=== PATIENT | female | born 1965 | race Caucasian/White ===

== ENCOUNTER 2016-12-07 19:24 | Emergency (ER) | payer SELFPAY ==
[2016-12-07] MEDS ORDERED: Ibuprofen 800 MG TAB ONE (19:48)
[2016-12-07] MEDS ORDERED: traMADol HCl 50 MG TAB ONE (19:48)
[2016-12-07] MEDS ORDERED: HYDROcodone/Acetaminophen 10/325 mg Tablet ONE (20:10)
--- NOTE | 2016-12-07 22:44 | RAD ---
LEFT WRIST THREE VIEWS: Date: 12-07-16 Comparison: 12-04-16 study done at [facility] in [place]. FINDINGS: There has been no particular change in the interval. Healing impacted fracture of the distal radius is present as well as an ulnar styloid process fracture. The carpals all appear intact. IMPRESSION: Healing fracture of the distal radius with no adverse change since 12-04-16. POS: HOME
== END 2016-12-07 20:10 | disposition home or self-care (01) ==
LOC: BURERS 19:24
DX: S52.532D Colles' fracture of left radius, subsequent encounter for closed fracture with routine healing (principal); M25.532 Pain in left wrist; F17.210 Nicotine dependence, cigarettes, uncomplicated; Z87.442 Personal history of urinary calculi
CPT/HCPCS: 99283

== ENCOUNTER 2016-12-21 11:19 | Emergency (ER) | payer SELFPAY | END 2016-12-21 11:25 | disposition left against medical advice (07) | LOC: BURERS 11:19 | DX: R50.9 Fever, unspecified (principal); G43.909 Migraine, unspecified, not intractable, without status migrainosus; F17.210 Nicotine dependence, cigarettes, uncomplicated ==

== ENCOUNTER 2017-11-24 19:58 | Emergency (ER) | payer SELFPAY ==
[2017-11-24] MEDS ORDERED: Morphine 4 MG/ML Carpuject ONE ×3 (20:08→20:53)
[2017-11-24 20:22] LABS: BHCG - Serum Negative (NEGATIVE); Pregs Control Background? CLEAR/WHITE (CLR/WHITE); Pregs Control Bar Appear? YES (CONTROL BAR)
[2017-11-24 20:23] LABS: INR-International Normal Ratio 0.9; Prothrombin Time 12.2 SEC (12.0-14.7)
[2017-11-24 20:41] LABS: Hemoglobin 14.4 g/dL (12.0-16.0); Mean Corpuscular HGB CONC 34.5 g/dL (32.0-36.0); Mean Corpuscular Hemoglobin 33.2 pg (27.0-31.0); Mean Corpuscular Volume 96.2 fl (81.0-99.0); Mean Platelet Volume 5.5 fL (7.4-10.4); Platelet Count 300 thou/uL (130-400); Red Blood Cell (RBC) Count 4.34 mill/uL (4.20-5.40); White Blood Cell (WBC) Count 4.7 thou/uL (4.8-10.8)
[2017-11-24 20:42] LABS: Band 3 % (5-11); Lymphocytes 46 % (21-51); MDiff Complete? YES; Monocytes 19 % (0-10); Neutrophil 30 % (42-75); Reactive Lymphocytes 1 % (0-10)
[2017-11-24 20:49] LABS: ALT (SGPT) 86 U/L (8-55); Albumin 4.1 g/dL (3.5-5.0); Alcohol 285 mg/dL (Less than 10); Alkaline Phosphatase 56 U/L (40-150); Anion Gap 25 mmol/L (10-20); BUN (Urea Nitrogen) 18 mg/dL (9.8-20.1); Bilirubin, Total Less than 0.2 mg/dL (0.2-1.2); Calc. Creatinine Clearance 0 mL/min (70-130); Calcium 8.8 mg/dL (7.8-10.44); Carbon Dioxide 21 mmol/L (22-29); Chloride 106 mmol/L (98-107); Estimated GFR-MDRD 88; Globulin 3.2 g/dL (2.4-3.5); Glucose 82 mg/dL (70-105); Potassium 4.5 mmol/L (3.5-5.1); Protein, Total 7.3 g/dL (6.0-8.3); Sodium 147 mmol/L (136-145)
[2017-11-24 20:51] LABS: AST (SGOT) 86 U/L (5-34)
--- NOTE | 2017-11-24 23:03 | RAD ---
RIGHT LEG TWO VIEWS 11/24/17 A spiral fracture of the tibial shaft is seen at the junction of its middle and distal thirds. There is posterior angulation of the proximal fragment. Additional, there is an oblique fracture of the dis elroy fibular shaft with posterior displacement of the distal fibula/lateral malleolus. This implies th e ankle mortise is disrupted. IMPRESSION: Fractures of the tibial shaft and distal fibula. POS: HOME
== END 2017-11-24 21:30 | disposition critical access hospital (66) ==
LOC: BURERS 19:58
DX: S82.231A Displaced oblique fracture of shaft of right tibia, initial encounter for closed fracture (principal); S82.431A Displaced oblique fracture of shaft of right fibula, initial encounter for closed fracture; G43.909 Migraine, unspecified, not intractable, without status migrainosus; M81.0 Age-related osteoporosis without current pathological fracture; F17.210 Nicotine dependence, cigarettes, uncomplicated; Z87.442 Personal history of urinary calculi; W22.8XXA Striking against or struck by other objects, initial encounter
CPT/HCPCS: 80053; 80307; 84703; 85025; 85610; 85730; 94760; 96374; 96376; J2270

== ENCOUNTER 2018-04-26 02:15 | Emergency (ER) | payer SELFPAY ==
[2018-04-26 03:12] LABS: Bilirubin Negative (Negative); Blood, Urine Moderate (Negative); Clarity Clear (Clear); Glucose, Urine (Dipstick) Negative (Negative); Leukocyte Negative (Negative); Nitrite Negative (Negative); Protein, Urine (Dipstick) Negative (Neg-Trace); Specific Gravity, Urine 1.005 (1.002-1.036); Urobilinogen 0.2 mg/dL (0.2-1.0)
[2018-04-26 03:21] LABS: ALT (SGPT) 96 U/L (8-55); AST (SGOT) 63 U/L (5-34); Acetaminophen Less than 6.0 mcg/mL (10.0-30.0); Albumin 4.2 g/dL (3.5-5.0); Alcohol 312 mg/dL (Less than 10); Alkaline Phosphatase 55 U/L (40-150); Anion Gap 18 mmol/L (10-20); BUN (Urea Nitrogen) 7 mg/dL (9.8-20.1); Bilirubin, Total Less than 0.2 mg/dL (0.2-1.2); Calc. Creatinine Clearance 0 mL/min (70-130); Calcium 9.3 mg/dL (7.8-10.44); Carbon Dioxide 25 mmol/L (22-29); Chloride 110 mmol/L (98-107); Estimated GFR-MDRD Greater than 90; Globulin 2.9 g/dL (2.4-3.5); Glucose 78 mg/dL (70-105); Potassium 3.7 mmol/L (3.5-5.1); Protein, Total 7.1 g/dL (6.0-8.3); Sodium 149 mmol/L (136-145)
[2018-04-26 03:24] LABS: Hemoglobin 13.4 g/dL (12.0-16.0); Mean Corpuscular HGB CONC 36.3 g/dL (32.0-36.0); Mean Corpuscular Hemoglobin 34.4 pg (27.0-31.0); Mean Corpuscular Volume 94.6 fL (78.0-98.0); Mean Platelet Volume 5.7 fL (7.4-10.4); PLT Morphology Comment Appears Adequate; Platelet Count 228 thou/uL (130-400); RBC Distribution Width 13.1 % (11.5-14.5); RBC Morphology Normal; Red Blood Cell (RBC) Count 3.89 mill/uL (4.20-5.40); White Blood Cell (WBC) Count 6.1 thou/uL (4.8-10.8)
[2018-04-26 03:27] LABS: Amphetamine Not Detected (NotDetected); Barbiturates Screen Not Detected (NotDetected); Benzodiazepine Screen Not Detected (NotDetected); Cocaine Metabolite Screen Not Detected (NotDetected); Medtox Control Line Valid? VALID (VALID); Methadone Not Detected (NotDetected); Methamphetamine Not Detected (NotDetected); Opiate Screen Not Detected (NotDetected); Oxycodone Screen Not Detected (NotDetected); Phencyclidine (PCP) Not Detected (NotDetected); THC/Cannabinoid Screen Not Detected (NotDetected); Tricyclic Screen Not Detected (NotDetected)
[2018-04-26 03:30] LABS: Bacteria/HPF Rare-Few HPF (None Seen); RBC/HPF 0-3 HPF (0-3); Squamous Epithelial 0-3 HPF (0-3); WBC/HPF None Seen HPF (0-3)
[2018-04-26 03:40] LABS: Lymphocytes 60 % (21-51)
[2018-04-26 03:41] LABS: Eosinophils 2 % (0-10); MDiff Complete? YES; Monocytes 4 % (0-10)
[2018-04-26] MEDS ORDERED: clonazePAM 0.5 MG TAB PO SCH (06:00)
[2018-04-26] MEDS ORDERED: clonazePAM 1 MG TAB PO SCH (06:15)
== END 2018-04-26 05:05 | disposition left against medical advice (07) ==
LOC: BURERS 02:15
DX: R45.851 Suicidal ideations (principal); F10.129 Alcohol abuse with intoxication, unspecified; F17.210 Nicotine dependence, cigarettes, uncomplicated; G43.909 Migraine, unspecified, not intractable, without status migrainosus
CPT/HCPCS: 36415; 80053; 80306; 80307; 81003; 81015; 85025; 93005

== ENCOUNTER 2018-05-02 00:45 | Emergency (ER) | payer SELFPAY ==
[2018-05-02] MEDS ORDERED: Magnesium Sulfate 2 GM/100 ML BAG ONE (01:20)
[2018-05-02] MEDS ORDERED: Thiamine HCl 200 MG/2 ML VIAL ONE (01:20)
[2018-05-02] MEDS ORDERED: chlordiazePOXIDE HCl 25 MG CAP ONE (01:24)
[2018-05-02 01:48] LABS: #Basophils 0.1 thou/uL (0.0-0.2); #Lymphocytes 3.2 thou/uL (1.20-3.40); #Monocytes 0.6 thou/uL (0.11-0.59); #Neutrophils 4.3 thou/uL (1.40-6.50); %Basophils 1.6 % (0.0-1.0); %Eosinophils 0.3 % (0.0-10.0); %Lymphocytes 38.9 % (21.0-51.0); %Monocytes 7.2 % (0.0-10.0); Hemoglobin 15.6 g/dL (12.0-16.0); Mean Corpuscular Hemoglobin 33.7 pg (27.0-31.0); Mean Corpuscular Volume 93.6 fL (78.0-98.0); Platelet Count 353 thou/uL (130-400); RBC Distribution Width 12.7 % (11.5-14.5); Red Blood Cell (RBC) Count 4.63 mill/uL (4.20-5.40); White Blood Cell (WBC) Count 8.3 thou/uL (4.8-10.8)
[2018-05-02] MEDS ORDERED: Ibuprofen 200 MG TAB ONE (01:58)
[2018-05-02 02:01] LABS: ALT (SGPT) 39 U/L (8-55); AST (SGOT) 26 U/L (5-34); Albumin 4.7 g/dL (3.5-5.0); Alcohol 301 mg/dL (Less than 10); Alkaline Phosphatase 64 U/L (40-150); Anion Gap 23 mmol/L (10-20); BUN (Urea Nitrogen) 8 mg/dL (9.8-20.1); Bilirubin, Total 0.3 mg/dL (0.2-1.2); Calc. Creatinine Clearance 0 mL/min (70-130); Calcium 9.4 mg/dL (7.8-10.44); Carbon Dioxide 18 mmol/L (22-29); Chloride 106 mmol/L (98-107); Estimated GFR-MDRD Greater than 90; Globulin 3.3 g/dL (2.4-3.5); Glucose 102 mg/dL (70-105); Potassium 3.8 mmol/L (3.5-5.1); Sodium 143 mmol/L (136-145)
== END 2018-05-02 02:11 | disposition home or self-care (01) ==
LOC: BURERS 00:45
DX: F10.129 Alcohol abuse with intoxication, unspecified (principal); F10.182 Alcohol abuse with alcohol-induced sleep disorder; G43.909 Migraine, unspecified, not intractable, without status migrainosus; F32.9 Major depressive disorder, single episode, unspecified; F17.210 Nicotine dependence, cigarettes, uncomplicated; Z79.899 Other long term (current) drug therapy
CPT/HCPCS: 80053; 80307; 83690; 83735; 84443; 85025; 96374; 96375; J3411; J3475